=== PATIENT | female | born 1950 | race Caucasian/White ===

== ENCOUNTER → 2023-09-21 | Outpatient (CLI) | payer MEDICARE, SELFPAY ==
[2023-09-21 12:44] LABS: ALB/GLOB Ratio 1.1 RATIO (0.9-2.4); AST(SGOT) 13 U/L (15-37); Alanine Aminotransfer ALT/SGPT 15 U/L (13-56); Albumin, Serum 3.9 g/dL (3.2-5.0); Alkaline Phosphatase 121 U/L (45-117); Anion Gap 5 (5-15); BUN 12 mg/dL (7-18); BUN/Creat Ratio 18.5 RATIO (10-20); CRP 4.42 mg/L (0.0-3.0); Calcium,Total 9.2 mg/dL (8.5-10.1); Chloride 106 mmol/L (98-107); Cholesterol 177 mg/dL (200); Creatinine, Serum 0.65 mg/dL (0.55-1.02); EST Glomerular Filtration Rate 95 mL/min (>60); Est Glom Filt Rate - Afr Amer 115 mL/min (>60); Globulin 3.6 g/dL (2.2-4.2); Glucose 133 mg/dL (74-106); High Density Lipoprotein 42 mg/dL; Potassium 4.4 mmol/L (3.5-5.1); Protein, Total 7.5 g/dL (6.4-8.2); Sodium Level 135 mmol/L (136-145); Triglycerides 100 mg/dL; Very Low Density Lipoprotein 20 mg/dL (5-40)
[2023-09-21 13:05] LABS: Microalbumin,Random Urine 43.1 mg/L (NO RANGE EST.); Microalbumin:Creatinine Ratio 19.5 mg/g CRE (<30 mg/g CRE)
== END | disposition home or self-care (01) ==
PROVIDERS: PCP Family Medicine; Visit Provider Family Medicine
DX: H34.8312 Tributary (branch) retinal vein occlusion, right eye, stable (principal); I10 Essential (primary) hypertension
CPT/HCPCS: 36415; 80053; 80061; 82043; 82570; 86140

== ENCOUNTER → 2023-09-22 | Outpatient (CLI) | payer MEDICARE, SELFPAY ==
--- NOTE | 2023-09-22 12:47 | CDU_ITS ---
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 Velocities/BP Lt. Velocities/BP Prox CCA 58.4/6.9 cm/sec. Prox CCA 84.2/9.5 cm/sec. Mid CCA 87.9/16.7 cm/sec. Mid CCA 95.2/11.7 cm/sec. Dist CCA 84.6/13.4 cm/sec. Dist CCA 85.3/11.7 cm/sec. Prox ICA 77.2/14.6 cm/sec. Prox ICA 145.4/35.8 cm/sec. Mid ICA 94.4/16.4 cm/sec. Mid ICA 112.8/30.5 cm/sec. Dist ICA 79.4/20.9 cm/sec. Dist ICA 95.7/25.8 cm/sec. Rt. ICA/CCA = 94.4/87.9=1.1. Lt. ICA/CCA = 145.4/95.2=1.5. Prox ECA 82.1/9.7 cm/sec. Prox ECA 87.9/9.3 cm/sec. Rt. Vert. 50.8/11.2 cm/sec. Lt. Vert. 45.0/9.1 cm/sec. Right Extracranial There is heterogeneous, irregular atherosclerotic plaque noted in the right common carotid artery. There is heterogeneous, irregular atherosclerotic plaque noted in the right internal carotid artery. There is heterogeneous, irregular atherosclerotic plaque noted in the right external carotid artery. Antegrade flow is noted in the right vertebral artery. Left Extracranial There is heterogeneous, irregular atherosclerotic plaque noted in the left common carotid artery. There is heterogeneous, irregular atherosclerotic plaque noted in the left internal carotid artery. There is homogeneous, irregular atherosclerotic plaque noted in the left external carotid artery. Antegrade flow is noted in the left vertebral artery. Procedure Carotid Duplex 23105. This is a Carotid Duplex examination using B-mode, color flow and specral Doppler. The study was technically difficult. Due to sinus drainage/swallowing continuously and arrhythmia. Exam performed in department. VL/Carotid Duplex Ultrasound Interpretation Summary Mild (<50%) stenosis right extracranial internal carotid. Moderate (50-69%) stenosis left extracranial internal carotid. Patent and antegrade vertebrals bilaterally. Ordering Physician: Pepe Arias Referring Physician: Jama Barroso Performed By: Sherry Durand RDCS, RVT
== END | disposition home or self-care (01) ==
PROVIDERS: PCP Family Medicine; Referring Provider Ophthalmology; Visit Provider Ophthalmology
DX: H34.8312 Tributary (branch) retinal vein occlusion, right eye, stable (principal)
CPT/HCPCS: 93880

== ENCOUNTER → 2024-05-23 | Outpatient (CLI) | payer MEDICARE, SELFPAY ==
[2024-05-23 18:04] LABS: Absolute Neutrophil Count 3.4 X10^3/uL (2.0-7.7); Basophil# 0.01 X10^3/uL; Basophil% 0.2 % (0-1); Eosinophil# 0.04 X10^3/uL; Eosinophils% 0.9 % (0-5); Hematocrit 39.6 % (37-47); Hemoglobin 13.2 g/dL (12.0-15.0); Lymphocyte % 15.9 % (19-41); Mean Corp Hgb Conc 33.3 g/dL (32-36); Mean Platelet Vol. 10.8 fl (6.2-12.0); Monocyte# 0.26 X10^3/uL; Monocyte% 5.9 % (0-10); NRBC Flagged by Analyzer 0 % (0-5); Neutrophil # 3.38 X10^3/uL (2.7-7.7); Neutrophil % 76.9 % (47-70); POSITIVE COUNT YES; Platelet Count 91 K/mm3 (150-450); RBC Distribution Width CV 13.3 % (11.6-14.6); RBC Distribution Width SD 43.7 fl (35.1-43.9); White Blood Count 4.4 K/mm3 (4.4-11.0)
[2024-05-23 18:09] LABS: Differential Indicated SCAN CRITERIA MET
[2024-05-23 18:27] LABS: Microalbumin,Random Urine 21.9 mg/L (NO RANGE EST.)
[2024-05-23 18:28] LABS: ALB/GLOB Ratio 1.2 RATIO (0.9-2.4); AST(SGOT) 16 U/L (15-37); Alanine Aminotransfer ALT/SGPT 18 U/L (13-56); Albumin, Serum 3.8 g/dL (3.2-5.0); Alkaline Phosphatase 142 U/L (45-117); Anion Gap 6 (5-15); BUN 12 mg/dL (7-18); BUN/Creat Ratio 19.6 RATIO (10-20); Calcium,Total 9.3 mg/dL (8.5-10.1); Chloride 101 mmol/L (98-107); Creatinine, Serum 0.61 mg/dL (0.55-1.02); EST Glomerular Filtration Rate 101 mL/min (>60); Est Glom Filt Rate - Afr Amer 123 mL/min (>60); Globulin 3.2 g/dL (2.2-4.2); Glucose 116 mg/dL (74-106); Sodium Level 134 mmol/L (136-145)
[2024-05-23 18:52] LABS: Anisocytosis 1+; Differential Comment SCANNED; Platelet Estimate MOD DEC (ADEQ); Polychromasia 1+
[2024-05-23 18:53] LABS: Acanthocytes RARE; Ovalocyte 1+
== END | disposition home or self-care (01) ==
LOC: MFPLAB 15:11
PROVIDERS: PCP Family Medicine; Visit Provider Family Medicine
DX: I10 Essential (primary) hypertension (principal); F17.200 Nicotine dependence, unspecified, uncomplicated
CPT/HCPCS: 36415; 80053; 82043; 82570; 85025

== ENCOUNTER → 2024-12-27 | Outpatient (CLI) | payer MEDICARE, SELFPAY ==
--- NOTE | 2024-12-27 14:28 | CDU_ITS ---
Reason For Study Reason For Study: L ICA Stenosis Rt. Velocities/BP Lt. Velocities/BP Prox CCA 75.6/10.6 cm/sec. Prox CCA 62.1/9.3 cm/sec. Mid CCA 62.1/8.1 cm/sec. Mid CCA 72.0/6.9 cm/sec. Dist CCA 79.3/14.2 cm/sec. Dist CCA 87.9/15.5 cm/sec. Prox ICA 74.0/21.2 cm/sec. Prox ICA 176.5/34.3 cm/sec. Mid ICA 91.5/18.1 cm/sec. Mid ICA 106.7/23.3 cm/sec. Dist ICA 76.9/19.2 cm/sec. Dist ICA 85.5/18.3 cm/sec. Rt. ICA/CCA = 1.5. Lt. ICA/CCA = 2.5. Prox ECA 69.0/2.7 cm/sec. Prox ECA 104.5/5.7 cm/sec. Rt. Vert. 60.9/10.6 cm/sec. Lt. Vert. 55.6/0.0 cm/sec. Right Extracranial There is heterogeneous, irregular atherosclerotic plaque noted in the right common carotid artery. There is heterogeneous, irregular atherosclerotic plaque noted in the right internal carotid artery. There is heterogeneous, irregular atherosclerotic plaque noted in the right external carotid artery. Antegrade flow is noted in the right vertebral artery. Left Extracranial There is heterogeneous, irregular atherosclerotic plaque noted in the left common carotid artery. There is heterogeneous, irregular atherosclerotic plaque noted in the left internal carotid artery. There is heterogeneous, irregular atherosclerotic plaque noted in the left external carotid artery. Antegrade flow is noted in the left vertebral artery. Procedure Carotid Duplex 30333. This is a Carotid Duplex examination using B-mode, color flow and specral Doppler. Exam performed in department. VL/Carotid Duplex Ultrasound Interpretation Summary Mild (<50%) stenosis right extracranial internal carotid. Moderate (50-69%) stenosis left extracranial internal carotid. Patent and antegrade vertebrals bilaterally. Ordering Physician: Iva Howard Referring Physician: Jama Barroso MD Performed By: Rayne Rahman
== END | disposition home or self-care (01) ==
LOC: CVS 14:26
PROVIDERS: PCP Family Medicine; Referring Provider Physician Assistant; Visit Provider Physician Assistant
DX: I65.22 Occlusion and stenosis of left carotid artery (principal)
CPT/HCPCS: 93880